=== PATIENT | female | born 1945 | race Caucasian/White ===

== ENCOUNTER → 2016-08-28 | Outpatient (CLI) | payer OTHER ==
--- NOTE | 2016-08-28 12:27 | DX ---
PA and Lateral Chest Clinical Indications: Productive cough and fever x2 months in this 71-year-old female. Comparison: July 25, 2007. Findings: No focal pulmonary consolidation is identified. There is minimal basilar opacity probably a telectasis. There is hyperexpansion seen with flattening of the hemidiaphragms noted. Peribronchial t hickening is noted. The heart size is at the upper limits of normal. Pulmonary vascularity is normal. No pleural effusions are identified.. Pleural surfaces and bony thorax are negative for acute abnorm ality. Aortic tortuosity is noted which can be associated with systemic hypertension. Impression: 1. Query COPD/chronic bronchitis. 2. Heart size at the upper limits of normal without pulmonary edema.
== END ==
LOC: BMCIMAGING 11:32
PROVIDERS: ATTEND Internal Medicine
DX: R05 Cough (principal); R50.9 Fever, unspecified

== ENCOUNTER → 2018-07-14 | Outpatient (CLI) | payer OTHER | LOC: MERGE 12:37 → BMCIMAGING 12:37 | PROVIDERS: ATTEND Family Medicine | DX: S62.514A Nondisplaced fracture of proximal phalanx of right thumb, initial encounter for closed fracture (principal) ==

== ENCOUNTER 2018-07-23 09:17 | Emergency (ER) | payer OTHER ==
[2018-07-23 09:24] VITALS: BP 117/83
--- NOTE | 2018-07-23 09:40 | EDPHY ---
H & P Time Seen by Provider: 07/23/18 09:24 HPI/ROS: CHIEF COMPLAINT: "My cast is too tight" HISTORY OF PRESENT ILLNESS: 73-year-old female sustained mechanical fall, fractured her right thumb) specifics unknown by patient) had a splint placed urgent care and a cast placed by Dr. Dario Tompkins yesterday, in the ER today complaining of feeling too tight around her thumb. She notes a new blue coloration to the tip of the thumb discoloration No paresthesia. PHYSICAL EXAM (Prior to examination, patient consented to physical exam, hands were washed and my usual and customary physical exam procedures followed) 1) GENERAL: Well-developed, well-nourished, alert and oriented. Appears to be in no acute distress. 2) HEAD: Normocephalic 3) HEENT: Pupils equal, round, reactive to light bilaterally. 4) LUNGS: Breathing comfortably. 5) MUSCULOSKELETAL: Right wrist fiberglass thumb spica splint in place. The tip of the right thumb is visualized and is cyanotic in coloration. Smoking Status: Former smoker Constitutional: Initial Vital Signs Temperature (C) 36.7 C 07/23/18 09:20 Heart Rate 72 07/23/18 09:20 Respiratory Rate 16 07/23/18 09:20 Blood Pressure 117/83 H 07/23/18 09:20 O2 Sat (%) 96 07/23/18 09:20 O2 Delivery Mode Room Air Allergies/Adverse Reactions: latex Allergy (Verified 04/03/13 07:41) oxycodone Allergy (Verified 02/04/15 11:00) Home Medications: Medication Instructions Recorded Levothyroxine [Synthroid 88 mcg 88 mcg PO DAILY06 04/03/13 (RX)] Symbicort 160-4.5 Mcg Inh (*) 07/23/18 MDM/Departure - MDM Procedures: Procedure: relief of pressure point of cast Indication: Cast too tight, pain, cyanotic discoloration Using a cast saw, a single dorsal cut was made in the cast and partially loosened and the patient felt immediate relief. Return of pink coloration to the tip of her thumb. The cast was then wrapped with Braulio bandage. ED Course/Re-evaluation: Patient was re-evaluated with serial exams. The cast was partially loosens or provided her relief, provided immediate relief for the patient. She had return of normal pink coloration the tip of her thumb. There still sufficient immobilization to the fractured area. Recommend she follow up with Dr. Dario Tompkins or his colleagues tomorrow (Sunday). Doubt compartment syndrome as she has complete resolution of symptoms after loosening of the cast. Care of patient under supervision of secondary supervising physician Dr Corral . - Depart Disposition: Home, Routine, Self-Care Clinical Impression: Cast discomfort Condition: Good Instructions: Cast Care (ED) Additional Instructions: Return to the ER immediately if you experience discoloration, have worsening pain, numbness, tingling, or any other symptoms that concern you. If you received x-rays in the emergency department today, be advised, that ligamentous , tendon, muscular, and other non-bony injury cannot be fully ruled out. [Try to keep your affected extremity elevated above the level of your chest, and keep cold packs on the affected area, for the next 48 hours.] Referrals: Dario Tompkins MD [Medical Doctor] - 1 day without fail
== END 2018-07-23 09:50 | disposition home or self-care (01) ==
DX: S62.501D Fracture of unspecified phalanx of right thumb, subsequent encounter for fracture with routine healing (principal); W19.XXXD Unspecified fall, subsequent encounter; Y92.9 Unspecified place or not applicable; Y93.9 Activity, unspecified; Y99.9 Unspecified external cause status